=== PATIENT | female | born 1960 | race Hispanic/Latino ===

== ENCOUNTER 2018-11-12 23:28 | Observation (INO) | payer OTHER ==
[~2018-11-12] VITALS: Ht 154.9 cm; Wt 49.4 kg
[2018-11-13] VITALS (22 sets, daily range): BP systolic 101–157; BP diastolic 58–93
[2018-11-13] MEDS ORDERED: HYDROCODONE/ACETAMINOPHEN 10/325 MG TAB ONE (00:02)
[2018-11-13] MEDS ORDERED: TETANUS/DIPHTHERIA TOXOID [ADULT] 0.5 ML VIAL IM ONE (00:02)
[2018-11-13] MEDS ORDERED: CEFAZOLIN SODIUM 1 GM VIAL ONE ×2 (00:52→13:41)
[2018-11-13] MEDS ORDERED: SODIUM CHLORIDE 0.9% 100 ML IV ONE (00:53)
[2018-11-13 00:54] LABS: BASOPHILS % (AUTO) 0.9 % (0.0-5.0); HEMATOCRIT 39.3 % (36-48); LYMPHOCYTES % (AUTO) 54.3 % (21.0-51.0); MEAN CORPUSCULAR HEMOGLOBIN 33.9 pg (27.0-33.0); MEAN CORPUSCULAR HGB CONC 34.6 g/dL (32.0-36.0); MEAN CORPUSCULAR VOLUME 98.1 fL (79-99); MONOCYTES % (AUTO) 5.2 % (3.0-13.0); NEUTROPHILS % (AUTO) 37.6 % (40.0-77.0); PLATELET COUNT (AUTO) 245 K/uL (130-400); RED BLOOD CELL COUNT(AUTO) 4.01 MIL/uL (4.00-5.50); RED CELL DISTRIBUTION WIDTH 12.4 % (11.0-15.5)
[2018-11-13 01:12] LABS: CREATININE 0.7 mg/dL (0.5-1.5); POTASSIUM 3.6 mmol/L (3.5-5.1)
[2018-11-13 01:14] LABS: BILIRUBIN,TOTAL 0.1 mg/dL (0.2-1.0); TOTAL PROTEIN, SERUM 7.2 g/dL (6.0-8.3)
[2018-11-13 01:18] LABS: INR 1.08 (0.85-1.15); PARTIAL THROMBOPLASTIN TIME 30.2 SEC (26.3-35.5); PROTHROMBIN TIME 11.3 SEC (9.6-11.6)
[2018-11-13] MEDS ORDERED: MORPHINE SULFATE 2 MG/ML 1ML SYG ONE (02:25)
[2018-11-13] MEDS: MORPHINE SULFATE 2 MG/ML 1ML SYG IVP PRN ×3 (04:53→09:40)
[2018-11-13] MEDS ORDERED: LIDOCAINE PF 2% 5ML ABBOJECT ONE (12:41)
[2018-11-13] MEDS ORDERED: DEXAMETHASONE SOD PHOSPHATE 10MG/ML 1ML VIAL ONE (12:41)
[2018-11-13] MEDS ORDERED: SUCCINYLCHOLINE 200MG/10ML SYR ONE (12:41)
[2018-11-13] MEDS ORDERED: NEOSTIGMINE 5MG/5ML SYR IV ONE (12:42)
[2018-11-13] MEDS ORDERED: ONDANSETRON HCL 4 MG/2 ML VIAL ONE (12:42)
[2018-11-13] MEDS ORDERED: GLYCOPYRROLATE 1 MG/5 ML SYRINGE ONE (12:42)
[2018-11-13] MEDS ORDERED: PROPOFOL 10 MG/ML 20ML VIAL IV ONE (12:42)
[2018-11-13] MEDS ORDERED: FENTANYL CITRATE PF 50 MCG/1 ML 2ML VIAL ONE (12:43)
[2018-11-13] MEDS ORDERED: ROCURONIUM 10MG/1ML SYR 10 MG/ML ML ONE (12:43)
[2018-11-13] MEDS ORDERED: MIDAZOLAM HCL 1 MG/ML 2ML VIAL ONE (12:43)
--- NOTE | 2018-11-13 12:50 | NUR ---
TO OR PATIENT TRANSFERRED TO OR HOLDING VIA HOSPITAL BED IN STABLE CONDITION.
[2018-11-13] MEDS ORDERED: BUPIVACAINE/PF 0.5% 30ML VIAL ONE (13:01)
[2018-11-13] MEDS ORDERED: LIDOCAINE HCL 1% 20 ML VIAL ONE (13:01)
[2018-11-13] MEDS ORDERED: BACITRACIN 50,000 UNIT VIAL ONE (13:01)
[2018-11-13] MEDS ORDERED: MEPERIDINE-PF 25 MG/ML SYG ONE (14:32)
[2018-11-13] MEDS ORDERED: ACETAMINOPHEN-CODEINE 300/30MG TAB PO PRN (15:15)
--- NOTE | 2018-11-13 18:20 | NUR ---
INSTRUCTIONS DISCHARGE INSTRUCTIONS GIVEN TO PATIENT USING TEACH BACK. IV REMOVED WITH TIP INTACT. DIRECT APPLIED UNTIL BLEEDING CONTROLLED THEN SITE COVERED WITH GAUZE AND SECURED WITH TAPE. NEW PRESCRIPTIONS PLACED IN DISCHARGE PACKET ALONG WITH ALL PRINTED INFORMATION AND MD INSTRUCTIONS. F/U APPOINTMENT WILL BE MADE BY PATIENT TOMORROW DURING REGULAR BUSINESS HOURS. NO QUESTIONS OR CONCERNS VOICED. PATIENT INFORMED NURSE THAT SHE DID NOT HAVE A WAY HOME SO ALEXANDREA MANZANO, RN (DIRECTOR OF NUCLEAR MEDICINE) OBTAINED A VOUCHER FOR A TAXI. SON IS HOME TO RECEIVE PATIENT.
[2018-11-13] MEDS ORDERED: CEFAZOLIN SODIUM 1 GM VIAL IVP SCH (21:00)
== END 2018-11-13 18:45 | disposition home or self-care (01) ==
LOC: EDH 23:28 → UNDOADMOB 23:29 → EDHIP 23:29 → 4BH 11-13 01:40
PROVIDERS: ADMIT Surgery Plastic and Reconstructive Surgery; ATTEND Surgery Plastic and Reconstructive Surgery
DX: S62.606A Fracture of unspecified phalanx of right little finger, initial encounter for closed fracture (principal); I10 Essential (primary) hypertension; X58.XXXA Exposure to other specified factors, initial encounter; Y93.89 Activity, other specified; Y92.89 Other specified places as the place of occurrence of the external cause; Y99.8 Other external cause status; Z79.899 Other long term (current) drug therapy; Z79.01 Long term (current) use of anticoagulants; Z23 Encounter for immunization
CPT/HCPCS: 13132; 36415; 71045; 73130; 80053; 85025; 85610; 85730; 90471; 90714; 93005; 96374; 96376; 99284; A4930; G0168; G0378 ×18; J0330; J0690 ×2; J1100; J2001; J2175; J2250; J2405; J2704; J2710; J3010; J3490 ×2; J7120